=== PATIENT | female | born 1975 | race Two or more races ===

== ENCOUNTER 2019-10-29 18:08 | Emergency (ER) | payer MEDICAID, SELFPAY ==
[2019-10-29 18:46] VITALS: BP 132/71; PULSE 84; RESP 16; TEMP 36.8; O2SAT 99; BMI 26.7
[2019-10-29 18:52] VITALS: BP 132/71; PULSE 84; RESP 16; TEMP 36.8; O2SAT 99
--- NOTE | 2019-10-29 18:57 | HMH.EDUTC ---
[facility] [place] Clinical Impression: Encounter for laboratory testing for COVID-19 virus Disposition: Home, Self-Care Condition on Discharge: Good Instructions: Preventing the Spread of Coronavirus Discharge Instructions Additional Instructions: You was tested for COVID in the [facility] your results should be back Friday or Friday You may call back to the [facility] on Friday to see if your results are back if you need a paper copy of your test result you will have to get that on Friday from Medical records Return if needed Straight to ER if any life threatening symptoms Referrals: PCP,No [Primary Care Provider] - As needed Time of Disposition: 18:59 Medical Decision Making - Link Inquiry Pt receiving controlled substance: No Link was queried for this patient: No Vital Signs: 10/29/19 18:46 10/29/19 18:52 Temperature 98.2 F 98.2 F Temperature Source Oral Pulse Rate 84 Pulse Rate [Left] 84 Respiratory Rate 16 16 Blood Pressure 132/71 Blood Pressure [Right Arm] 132/71 Blood Pressure Mean [Right Arm] 91 Blood Pressure Source [Right Arm] Automatic Cuff Blood Pressure Position [Right Arm] Sitting 02 Sat by Pulse Oximetry 99 Oxygen Delivery Method Room Air [facility] [place] - General Stated complaint: Needs Covid for Surg At [facility] Time Seen by Provider: 10/29/19 18:57 Mode of Arrival: Ambulatory Source of Information: Patient Limitations: No Limitations Description of Symptoms (Recalled from Triage Doc. by RN): Need a Covid test for procedure HEENT Symptoms (Recalled from RN notes): No Resp Symptoms (Recalled from RN notes): No Skin Symptoms (Recalled from RN notes): No MS Symptoms (Recalled from RN notes): No Functional Status (Recalled from RN notes): WNL - History of Present Illness Provider Complaint: Patient states that she is having a hysterctomy next and surgeon told her she needed to have a COVID test prior to the procedure or she couldnt get her surgery so she came in to get a COVID test Denies feeling ill denies fever, denies sore throat - Worker's Comp Is this a Worker's Comp case?: No Is this an H Worker's Comp?: No Is this a Minnie Worker's Comp?: No [facility] History - Hepatitis A Screen Drug use history?: No High risk sexual behaviors?: No History of sexually transmitted infection?: No Currently employed?: No Childcare worker?: No Do you have indoor plumbing?: Yes Do you have electricity?: Yes Attestation statement:: This patient has been screened for Hepatitis A risk factors. I have reviewed the patient's past medical history: Yes Medical History: Denies:: Cancer, Diabetes Mellitus Type 1, Diabetes Mellitus Type 2, Internal Pacemaker, MRSA Other Surgeries: No: Pacemaker Amputation: No Fractures: No - Social History Smoking Status: Never smoker Alcohol Intake: never Occupational Status: employed ROS Obtained: Yes All systems reviewed & no additional complaints, Yes Systems reviewed as appropriate & no additional complaints - Constitutional Constitutional: Reports system reviewed and no additional complaints, except as docu, Denies body ache, Denies chills, Denies fever(s) - ENT Ears, Nose, Mouth, and Throat: Reports system reviewed and no additional complaints, except as docu, Denies otalgia, Denies sinus pain, Denies sinus pressure, Denies sore throat - Cardiovascular Cardiovascular: Reports system reviewed and no additional complaints, except as docu, Denies chest pain, Denies dyspnea - Respiratory Respiratory: Yes system reviewed and no additional complaints, except as docu, No chest congestion, No cough, No dyspnea - Gastrointestinal Gastrointestingal: Reports: system reviewed and no additional complaints, except as docu. Denies: abdominal pain, diarrhea, nausea, vomiting Physical Exam - General General appearance: alert, in no apparent distress - ENT ENT exam: Present: normal exam, normal oropharynx, mucous membranes moist, TM's normal bilaterally, normal
[2019-11-01 20:36] LABS: Covid-19 Nasal PCR Sendout UK Not Detected
== END 2019-10-29 19:00 | disposition home or self-care (01) ==
PROVIDERS: Emergency Provider Nurse Practitioner
DX: Z20.828 Contact with and (suspected) exposure to other viral communicable diseases (principal)
CPT/HCPCS: 99201; U0003

== ENCOUNTER 2021-07-29 17:14 | Emergency (ER) | payer OTHER, SELFPAY ==
[2021-07-29 17:33] VITALS: BP 119/62; PULSE 75; RESP 16; TEMP 36.9; O2SAT 96; BMI 28.9
[2021-07-29 17:38] LABS: Apearance,Urine Cloudy (Clear); Color,Urine Orange (Yellow); PH,Urine 8.5 (5.0-8.5)
[2021-07-29 17:39] LABS: Bilirubin,Urine Negative (Negative); Blood, Urine 2+ (Negative); Glucose,Urine (UA) Trace (Negative); Ketones,Urine TRACE (Negative); Protein,Urine 2+ (Negative); Urobilinogen,Urine 2 EU/dl (0.2)
[2021-07-29 17:40] LABS: UTC Leukocyte Esterase,Urine 1+ (Negative); UTC Nitrate,Urine Positive (Negative)
--- NOTE | 2021-07-29 17:43 | HMH.EDUTC ---
[facility] [place] Impression: UTI (urinary tract infection) Qualifiers: Urinary tract infection type: site unspecified Hematuria presence: with hematuria Qualified Code(s): N39.0 - Urinary tract infection, site not specified; R31.9 - Hematuria, unspecified Disposition: Home, Self-Care Condition on Discharge: Good Instructions: DI for Urinary Tract Infection (UTI), Urine Culture Additional Instructions: Drink plenty of fluids. Water would be best. Take tylenol or ibuprofen for pain or fever. Take the medications as directed. Follow up with your regular doctor. GO TO THE ER FOR ANY WORSENING SYMPTOMS The pyridium will make your urine turn orange, this is an expected side effect. It will stain your clothes if it comes into contact with them. We will culture the urine. That will tell what bacteria is causing your infection and which antibiotics will treat it best. Sometimes the first antibiotic we prescribe turns out to not work against different bacteria. So, make sure you follow up within 3 days if you are not getting better. Prescriptions: Ondansetron [Zofran 4mg ODT] 4 mg PO Q8HP PRN #12 tab PRN Reason: Nausea Transmission Status: Pending to [facility] # Nitrofurantoin Monohyd/M-Cryst [Macrobid 100 mg Capsule] 100 mg PO BID 5 Days #10 cap Transmission Status: Pending to [facility] # Phenazopyridine HCl [Pyridium 200mg Tablet] 200 pow PO TID #6 tab Transmission Status: Pending to [facility] # Referrals: Provider,Referral, [Primary Care Provider] - Forms: Work/School Release Time of Disposition: 17:51 Medical Decision Making - Medical Records Medical records reviewed: No: I reviewed the patient's medical records. - Link Inquiry Pt receiving controlled substance: No Vital Signs: 07/29/21 17:33 Temperature 98.4 F Temperature Source Oral Pulse Rate [Left Radial] 75 Respiratory Rate 16 Blood Pressure [Right Arm] 119/62 Blood Pressure Mean [Right Arm] 81 02 Sat by Pulse Oximetry 96 - Lab Data Lab results reviewed: Yes: I reviewed the patient's lab results. Lab Results 07/29/21 17:29: Urine Color [place], Urine Appearance Cloudy, Urine pH 8.5, Ur Specific Mcintosh 1.020, Urine Protein 2+, Urine Glucose (UA) Trace, Urine Ketones Trace, Urine Blood 2+, Urine Nitrate Positive A, Urine Bilirubin Negative, Urine Urobilinogen 2, Ur Leukocyte Esterase 1+ A [facility] [place] General Stated complaint: possible Uti Time Seen by Provider: 07/29/21 17:43 Description of Symptoms (Recalled from Triage Doc. by RN): patient comes in today with complaints of burning and pain with urination. symptoms began yesterday morning. HEENT Symptoms (Recalled from RN notes): No Resp Symptoms (Recalled from RN notes): No Skin Symptoms (Recalled from RN notes): No MS Symptoms (Recalled from RN notes): No Functional Status (Recalled from RN notes): wnl - History of Present Illness Provider Complaint: she states that since yesterday she has had dysuria, urinary frequency and lower abdomen tenderness. - Related Data Previous Rx's Medication Instructions Recorded Nitrofurantoin Monohyd/M-Cryst 100 mg PO BID 5 Days #10 cap 07/29/21 [Macrobid 100 mg Capsule] Ondansetron [Zofran 4mg ODT] 4 mg PO Q8HP PRN #12 tab 07/29/21 Phenazopyridine HCl [Pyridium 200 pow PO TID #6 tab 07/29/21 200mg Tablet] Allergies Allergy/AdvReac Type Severity Reaction Status Date / Time No Known Allergies Allergy Verified 07/29/21 17:38 - Worker's Comp Is this a Worker's Comp case?: No [facility] History - Hepatitis A Screen Attestation statement:: This patient has been screened for Hepatitis A risk factors. I have reviewed the patient's past medical history: Yes Medical History: Denies:: Cancer, Diabetes Mellitus Type 1, Diabetes Mellitus Type 2, Internal Pacemaker, MRSA Other Surgeries: No: Pacemaker Amputation: No Fractures:
[2021-07-29 18:01] VITALS: BP 119/62; PULSE 75; RESP 16; TEMP 36.9
== END 2021-07-29 18:02 | disposition home or self-care (01) ==
PROVIDERS: Emergency Provider Nurse Practitioner Family
DX: N39.0 Urinary tract infection, site not specified (principal); B96.20 Unspecified Escherichia coli [E. coli] as the cause of diseases classified elsewhere; R31.9 Hematuria, unspecified
CPT/HCPCS: 81003; 87086; 87088; 87186; 99212; G0463

== ENCOUNTER 2021-10-02 05:18 | Emergency (ER) | payer OTHER, SELFPAY ==
[2021-10-02] VITALS (7 sets, daily range): BP systolic 101–123; BP diastolic 63–80; PULSE 66–78; RESP 16–18; TEMP 36.6–36.9; O2SAT 97–99; BMI 28.0
[2021-10-02 06:02] LABS: Microscopic, Urine URINE MICROSCOPIC (MICROSCOPIC)
[2021-10-02 06:06] LABS: Appearance,Urine SL CLOUDY (Clear); Bilirubin,Urine Negative (Negative); Blood, Urine 3+ (Negative); Glucose,Urine (UA) TRACE (Negative); Ketones,Urine Negative (Negative); Leukocyte Esterase,Urine 3+ (Negative); Nitrate,Urine POSITIVE (Negative); Protein,Urine 1+ (Negative)
[2021-10-02 06:13] LABS: Basophils # 0.1 K/mm3 (0-0.2); Basophils % 0.9 % (0.1-2.0); Eosinophils # 0.2 K/mm3 (0.0-0.4); Eosinophils % 2.7 % (0.1-12.0); Hematocrit 44.9 % (37.0-47.0); Hemoglobin 14.4 g/dL (12.2-16.2); Lymphocytes # 2.1 K/mm3 (0.7-4.5); Lymphocytes % 22.9 % (10-50); Mean Corpuscular HGB Conc 32.2 g/dL (31.8-35.4); Mean Corpuscular Hemoglobin 31.3 pg (27.0-31.2); Mean Corpuscular Volume 97.3 fl (81-99); Mean Platelet Volume 9.5 fl (7.4-10.4); Monocytes # 0.4 K/mm3 (0.1-1.0); Monocytes % 4.9 % (1.7-9.3); Neutrophils # 6.2 K/mm3 (1.8-7.8); Neutrophils % 68.6 % (37.0-80.0); Platelet Count 247 K/mm3 (142-424); Red Blood Count 4.61 M/mm3 (4.20-5.40); Red Cell Distribution Width 13.7 % (11.5-17.5)
[2021-10-02 06:19] LABS: Color,Urine ORANGE (Yellow)
[2021-10-02 06:24] LABS: Bacteria,Urine Trace /lpf; Squamous Epithelial Cell,Urine Occasional #/hpf (0-5); WBC,Urine 50-100 #/hpf (0-3)
[2021-10-02 06:25] LABS: Chloride 110 mmol/L (98-107); Potassium 3.7 mmoL/L (3.5-5.1); Sodium 140 mmol/L (136-145)
[2021-10-02 06:27] LABS: Alanine Aminotransferase 27 U/L (12-78); Aspartate Amino Transferase 27 U/L (14-36); Blood Urea Nitrogen 8 mg/dl (7-17); Creatinine Clearance Estimated 133 mL/min (50-200); Estimated Glomerular Filt Rate 108 ml/min (>60); GFR (African American) 130 ML/MIN (>60)
[2021-10-02 06:28] LABS: Albumin Level 3.9 g/dl (3.5-5.0); Albumin/Globulin Ratio 1.3 (1.1-1.8); Alkaline Phosphatase 99 U/L (38-126); Anion Gap 8.7 mEq/L (5-15); Bilirubin,Total 0.7 mg/dl (0.2-1.3); Calcium 8.3 mg/dl (8.4-10.2); Carbon Dioxide 25 mmol/L (22.0-30.0); Globulin 3.1 g/dL (1.3-3.2); Glucose 94 mg/dl (74-100)
--- NOTE | 2021-10-02 06:35 | PC.NURSE ---
Rounded on Pt. Pt given warm blanket for comfort. No other needs or complaints at this time.
--- NOTE | 2021-10-02 07:23 | HMH.EDUROGF ---
ED Disposition Clinical Impression: UTI (urinary tract infection) Qualifiers: Urinary tract infection type: site unspecified Hematuria presence: without hematuria Qualified Code(s): N39.0 - Urinary tract infection, site not specified Disposition: Home, Self-Care Condition on Discharge: Good Instructions: DI for Urinary Tract Infection (UTI) Additional Instructions: fluids and use meds and see pcp and urology for follow up Prescriptions: levoFLOXacin [Levaquin 500mg tab] 500 mg PO DAILY #7 tab Transmission Status: Pending to [facility] #[id number] Phenazopyridine HCl [Pyridium 200mg Tablet] 200 pow PO TID #6 tab Transmission Status: Pending to [facility] #[id number] Referrals: Provider,Referral, [Primary Care Provider] - - Critical Care Critical Care Time: No Attestation: On 10/02/21, the high probability of a clinically significant, sudden or life threatening deterioration of the following system(s) required my full and direct attention, intervention and personal management. The time I documented below is in addition to time spent performing reported procedures but includes the following listed in this critical care notation. Medical Decision Making - Medical Records Medical records reviewed: Yes: I reviewed the patient's medical records. - Link Inquiry Pt receiving controlled substance: No Vital Signs: 10/02/21 05:19 10/02/21 05:46 10/02/21 06:34 Temperature 98.3 F 98 F Temperature Source Oral Oral Pulse Rate 75 Pulse Rate [Apical] 78 Respiratory Rate 16 18 Blood Pressure 111/68 Blood Pressure [Right Arm] 123/80 120/78 Blood Pressure Mean [Right Arm] 94 92 Blood Pressure Source [Right Arm] Automatic Cuff Blood Pressure Position [Right Arm] Sitting 02 Sat by Pulse Oximetry 98 99 97 Oxygen Delivery Method Room Air Room Air Room Air - Lab Data Lab results reviewed: Yes: I reviewed the patient's lab results. Lab Results 10/02/21 05:24: Urine Color [place], Urine Appearance Sl cloudy, Urine pH 6.0, Ur Specific [place] 1.020, Urine Protein 1+, Urine Glucose (UA) Trace, Urine Ketones Negative, Urine Blood 3+, Urine Nitrate Positive, Urine Bilirubin Negative, Urine Urobilinogen 2.0, Ur Leukocyte Esterase 3+ A, Urine RBC 5-10, Urine WBC 50-100, Ur Squamous Epith Cells Occasional, Urine Bacteria Trace 10/02/21 05:33: WBC 9.0, RBC 4.61, Hgb 14.4, Hct 44.9, MCV 97.3, MCH 31.3 H, MCHC 32.2, RDW 13.7, Plt Count 247, MPV 9.5, Neut % (Auto) 68.6, Lymph % (Auto) 22.9, Woodruff % (Auto) 4.9, Eos % (Auto) 2.7, Baso % (Auto) 0.9, Neut # (Auto) 6.2, Lymph # (Auto) 2.1, Woodruff # (Auto) 0.4, Eos # (Auto) 0.2, Baso # (Auto) 0.1 10/02/21 05:33: Sodium 140, Potassium 3.7, Chloride 110 H, Carbon Dioxide 25, Anion Gap 8.7, BUN 8, Creatinine 0.60, Estimated Creat Clear 133, Estimated GFR 108, Est GFR ( Amer) 130, Glucose 94, Calcium 8.3 L, Total Bilirubin 0.7, AST 27, ALT 27, Alkaline Phosphatase 99, Total Protein 7.0, Albumin 3.9, Globulin 3.1, Albumin/Globulin Ratio 1.3 Result diagrams: 10/02/21 05:33 10/02/21 05:33 Orders (Tests/Meds): ED MEDICATIONS Generic Name Dose Route Start Last Admin Trade Name Freq PRN Reason Stop Dose Admin Ceftriaxone Sodium 1 gm/ 50 mls @ 100 mls/hr 10/02/21 07:15 10/02/21 07:16 Sodium Chloride IV 10/16/21 07:14 100 mls/hr Q24H ANIA Administration ORDERS Category Date Time Status Urine Culture Stat Micro 10/02/21 05:24 Received Medical Decision Narrative: has uti - Female Urogenital HPI - General Chief complaint: Skin/Abscess/Foreign Body Stated complaint: pain and frequent urination Time Seen by Provider: 10/02/21 07:23 Mode of Arrival: Ambulatory Source of Information: Patient, Relative, Medical Record Limitations: No Limitations Description of Symptoms (Recalled from ER Triage Doc. by RN): Painful urination and urinary frequency. - History of Present Illness HPI Narrative: painful urination and freq st
--- NOTE | 2021-10-02 07:35 | PC.NURSE ---
Pt resting in bed. IV antibiotics running at this time.
--- NOTE | 2021-10-02 08:33 | PC.NURSE ---
GAVE WORK/SCHOOL EXCUSE
== END 2021-10-02 08:36 | disposition home or self-care (01) ==
PROVIDERS: Emergency Provider Emergency Medicine
DX: N39.0 Urinary tract infection, site not specified (principal)
CPT/HCPCS: 80053; 81001; 85025; 87086; 87088; 87186; 96365; 99284; J0696

== ENCOUNTER → 2022-09-25 14:09 | Outpatient (CLI) | payer OTHER, SELFPAY ==
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
== END ==
PROVIDERS: Visit Provider Nurse Practitioner Family
DX: R51.9 Headache, unspecified (principal); R42 Dizziness and giddiness
CPT/HCPCS: 70551

== ENCOUNTER → 2022-11-19 16:17 | Outpatient (CLI) | payer OTHER, SELFPAY ==
--- NOTE | 2022-11-19 16:22 | MM_ITS ---
PROCEDURE INFORMATION: Exam: MG Bilateral Diagnostic Mammography Exam date and time: 11/19/2022 4:12 PM Age: 47 years old Clinical indication: Due for annual screening. Patient reports right breast focal pain for 2 weeks. A skin marker was positioned in the locations symptoms TECHNIQUE: Imaging protocol: Diagnostic mammography of the bilateral breasts including computer-aided detection (CAD) when performed. Bilateral exam. COMPARISON: 1. MG MAMMOGRAPHY BREAST DIAGNOSTIC TOMOSYNTHESIS BILATERAL 08/09/2021 8:39 AM 2. MG RENETTA BILATERAL SCREENING 09/21/2018 3:37 PM 3. US BREAST LIMITED RIGHT 08/09/2021 9:30 AM FINDINGS: MAMMOGRAPHY: The breast is heterogeneously dense, which may obscure small masses. In the region of focal pain, lower slightly outer right middle 1/3, only normal glandular structures are apparent. No new mass, architectural distortion, or suspicious calcifications have developed to suggest malignancy. No axillary adenopathy. IMPRESSION: No suspicious mammographic findings. Due to the patient's clinical presentation, targeted ultrasound is recommended in the region of focal pain, lower slightly outer right middle 1/3, to complete the diagnostic workup ASSESSMENT: BI-RADS category 0: Incomplete-need additional imaging evaluation
== END ==
PROVIDERS: PCP Nurse Practitioner; Visit Provider Nurse Practitioner
DX: Z12.31 Encounter for screening mammogram for malignant neoplasm of breast (principal)
CPT/HCPCS: 77063; 77067

== ENCOUNTER → 2022-12-23 15:43 | Outpatient (CLI) | payer OTHER, SELFPAY ==
--- NOTE | 2022-12-23 15:49 | US_ITS ---
PROCEDURE INFORMATION: Exam: US Right Breast, Complete Exam date and time: 12/23/2022 3:49 PM Age: 47 years old Clinical indication: Right breast pain TECHNIQUE: Imaging protocol: Complete ultrasound of all four quadrants of the right breast and the retroareolar regions, including ultrasound of the axilla when performed. COMPARISON: US BREAST LIMITED RIGHT 08/09/2021 9:30 AM FINDINGS: Breast: Sonographic images of the right breast including the retroareolar region, all 4 quadrants and the axilla do not demonstrate any solid or cystic masses. No architectural distortion or acoustical shadowing. No skin thickening or axillary adenopathy. IMPRESSION: No sonographic evidence of malignancy. Annual mammographic screening is recommended unless otherwise clinically indicated. ASSESSMENT: BI-RADS Category 1: Negative
== END ==
PROVIDERS: PCP Obstetrics & Gynecology Gynecology; Visit Provider Obstetrics & Gynecology Gynecology
DX: R92.8 Other abnormal and inconclusive findings on diagnostic imaging of breast (principal)
CPT/HCPCS: 76641

== ENCOUNTER 2023-02-07 16:56 | Emergency (ER) | payer OTHER, SELFPAY ==
[2023-02-07 18:10] VITALS: BP 121/71; BP 121/72; PULSE 68; PULSE 74; RESP 21; TEMP 36.6; O2SAT 98; BMI 27.3
--- NOTE | 2023-02-07 18:14 | EXP.UTC ---
Discharge Plan Disposition Patient Disposition: Home, Self-Care Condition: Good Prescriptions Prescriptions: New methylprednisolone 4 mg Tablets,Dose Pack 4 mg PO DIRECTED 6 Days Qty: 21 0RF Rx Instructions: Take 1 pack as directed for 6 days ondansetron 4 mg Tablet,Disintegrating 4 mg PO Q8H PRN (Reason: Nausea) Qty: 12 0RF cefdinir 300 mg capsule 300 mg PO BID Qty: 20 0RF No Action Gemtesa 75 mg tablet 75 mg PO DAILY Referrals Follow up/Referrals: Provider,Referral, MD [Primary Care Provider] - See instructions Activity Restrictions/Add. Instructions Additional Instructions/Restrictions: Drink plenty of fluids. Take the zofran (ondesetron) for nausea/vomiting. Take the medications as directed. Follow up with your regular doctor. GO TO THE ER FOR ANY WORSENING SYMPTOMS Clinical Impressions Clinical Impression: Benign paroxysmal positional vertigo Instructions Patient Instructions: Benign Paroxysmal Positional Vertigo, Ondansetron, Cefdinir Discharge ED Provider: Enrrique Gerard [facility] General Stated complaint: dizzy Time Seen by Provider: 02/07/23 18:14 History of Present Illness Provider Complaint: She states that she has been having periods of dizziness for the past few days. She thinks that she may have an ear infection. Related Data Home Medications Medication Instructions Recorded Confirmed vibegron 75 mg tablet (Gemtesa) 75 mg PO DAILY 02/07/23 02/07/23 Previous Rx's Medication Instructions Recorded cefdinir 300 mg capsule 300 mg PO BID #20 caps 02/07/23 methylprednisolone 4 mg tablets in 4 mg PO DIRECTED 6 days #21 tabs 02/07/23 a dose pack ondansetron 4 mg disintegrating 4 mg PO Q8H PRN Nausea #12 tabs 02/07/23 tablet Allergies Allergy/AdvReac Type Severity Reaction Status Date / Time No Known Allergies Allergy Verified 07/29/21 17:38 [facility] Disclaimer: The information contained in this section may have been updated after the patient was seen, as this information can be updated by other users. Surgical History (Updated 02/07/23 @ 18:28 by Sarah Ventura RN) History of section History of hysterectomy Social History Smoking Status: Never smoker second hand exposure: No alcohol intake: never current occupational status: employed Travel in the last 8 weeks: None current occupational exposures/hazards: No caffeine: Yes ROS Obtained: Yes All systems reviewed & no additional complaints except as documented Constitutional Constitutional: Denies chills, Reports fever(s) and Reports poor appetite Eyes Eyes: Denies eye discharge ENT Ears, Nose, Mouth, and Throat: Denies ear discharge, Reports otalgia, Denies hearing loss, Denies sinus pain and Reports sore throat Cardiovascular Cardiovascular: Denies chest pain and Denies dyspnea Respiratory Respiratory: Denies chest congestion, Reports cough and Denies dyspnea Gastrointestinal Gastrointestingal: Denies abdominal pain, diarrhea, nausea or vomiting Musculoskeletal Musculoskeletal: Denies arthralgias Integumentary/Breasts Skin/Breast: Denies rash Physical Exam General General appearance: alert and in no apparent distress Head Head exam: atraumatic, normocephalic and normal inspection Eye Eye exam: Present normal appearance; Absent PERRL or EOMI ENT ENT exam: Present mucous membranes moist and normal external ear exam Expanded ENT Exam TM/Canal exam: Bilateral TM: erythema, bulging and effusion Nose exam: Absent sinus tenderness Nasal speculum exam: Bilateral: normal Mouth exam: Present normal external inspection and other; Absent drooling Teeth exam: Present normal inspection Throat exam: Present tonsillar erythema and tonsillomegaly Neck Neck exam: Present normal inspection, full ROM and trachea midline; Absent tenderness, meningismus or lymphadenopathy Chest Chest inspection: Present normal inspection and symmetric chest wall rise; Absent tenderness Respiratory Respiratory exam: Present normal lung sounds bilaterally; Absent respiratory distress, wheezes or stridor Cardiovascular Cardiovascular exam: Present regular rate, normal rhythm and normal heart sounds; Absent tachycardia or irregular rhythm Abdominal Exam Abdominal exam: Present soft and normal bowel sounds; Absent distention, tenderness, guarding, rebound or rigidity Extremities Exam Extremities exam: Present normal inspection and normal capillary refill; Absent tenderness, joint swelling or calf tenderness Back Exam Back exam: Present normal inspection and full ROM; Absent tenderness, CVA tenderness (R) or CVA tenderness (L) Neurological Exam Neurological exam: Present alert, oriented X3, CN II-XII intact, normal gait and reflexes normal; Absent motor sensory deficit Psychiatric Psychiatric exam: Present normal affect and normal mood Skin Skin exam: Present warm, dry, intact and normal color Lymphatic Lymphatic Findings: no adenopathy Medical Decision Making Medical Records Medical records reviewed: No I reviewed the patient's medical records. Link Inquiry Pt receiving controlled substance: No Lab Data Lab results reviewed: Yes I reviewed the patient's lab results.
[2023-02-07 18:45] VITALS: BP 121/72; PULSE 68; RESP 21; TEMP 36.6; O2SAT 98
== END 2023-02-07 18:49 | disposition home or self-care (01) ==
PROVIDERS: Emergency Provider Nurse Practitioner Family
DX: H81.10 Benign paroxysmal vertigo, unspecified ear (principal); H92.03 Otalgia, bilateral
CPT/HCPCS: 99212; 99214; G0463

== ENCOUNTER 2023-03-28 16:25 | Emergency (ER) | payer OTHER, SELFPAY ==
[2023-03-28 17:20] VITALS: BP 102/61; PULSE 81; RESP 18; TEMP 37; O2SAT 98; BMI 26.6
--- NOTE | 2023-03-28 17:40 | EXP.UTC ---
Discharge Plan Disposition Patient Disposition: Home, Self-Care Condition: Good Prescriptions Prescriptions: New amoxicillin-pot clavulanate 875-125 mg Tablet 1 tab PO Q12H Qty: 20 0RF pseudoephedrine HCl [Sudafed 12 Hour] 120 mg tablet extended release 120 mg PO Q12H PRN (Reason: nasal congestion) Qty: 20 0RF No Action Gemtesa 75 mg tablet 75 mg PO DAILY Referrals Follow up/Referrals: Provider,Referral, MD [Primary Care Provider] - See instructions Activity Restrictions/Add. Instructions Additional Instructions/Restrictions: *Monitor Temp, Over the counter Motrin or Tylenol as directed/as needed Tylenol every 4 hours and Motrin every 6 hours (as long as your family doctor has told you that you can take it) for fever or pain. and straight to ER if unable to lower temp less than 101.0 after medication given *Warm salt water gargles may help to soothe the throat *Throat Lozenges? *Warm fluids like tea with honey may help to soothe the throat? *Sleep elevated *Humidifier/Vaporizer Follow up IMMEDIATELY for new or worsening symptoms or no Noticeable improvement over the next 48-72 hours. 911 for difficulty breathing or swallowing Clinical Impressions Clinical Impression: Left otitis media Qualifiers: Otitis media type: unspecified Qualified Code(s): H66.92 - Otitis media, unspecified, left ear Instructions Patient Instructions: Middle Ear Infection Discharge ED Provider: Cristin Ta [facility] General Stated complaint: left ear pain st runny nose Mode of Arrival: Ambulatory Source of Information: Patient Limitations: No Limitations Time Seen by Provider: 03/28/23 17:40 Description of Symptoms (Recalled from Triage Doc. by RN): PATIENT C/O LEFT EAR PAIN, RUNNY NOSE, ITCHY THROAT AND FEELING WARM/FEVERISH X 3 WEEKS HEENT Symptoms (Recalled from RN notes): Yes Resp Symptoms (Recalled from RN notes): No Skin Symptoms (Recalled from RN notes): No MS Symptoms (Recalled from RN notes): No Functional Status (Recalled from RN notes): WNL History of Present Illness Provider Complaint: Patient primarily Azeri speaking but can understand and speak Sami Patient states that she has been having pain in her left ear that sometimes goes down into her neck, drainage and feeling feverish at times on and off for 3 wks Related Data Home Medications Medication Instructions Recorded Confirmed vibegron 75 mg tablet (Gemtesa) 75 mg PO DAILY 02/07/23 03/28/23 Previous Rx's Medication Instructions Recorded amoxicillin 875 mg-potassium 1 tab PO Q12H #20 tabs 03/28/23 clavulanate 125 mg tablet pseudoephedrine HCl 120 mg 120 mg PO Q12H PRN nasal 03/28/23 tablet,extended release (Sudafed congestion #20 tabs 12 Hour) Allergies Allergy/AdvReac Type Severity Reaction Status Date / Time No Known Allergies Allergy Verified 02/26/23 10:28 Worker's Comp Is this a Worker's Comp case?: No [facility] Disclaimer: The information contained in this section may have been updated after the patient was seen, as this information can be updated by other users. Medical History (Updated 03/28/23 @ 17:44 by Cristin Ta APRN) Benign paroxysmal positional vertigo Encounter for laboratory testing for COVID-19 virus Scleral injection UTI (urinary tract infection) Surgical History History of section History of hysterectomy Family History Other No significant family history Social History Smoking Status: Never smoker second hand exposure: No alcohol intake: never current occupational status: employed Travel in the last 8 weeks: None current occupational exposures/hazards: No caffeine: Yes ROS Obtained: Yes All systems reviewed & no additional complaints except as documented and Yes Systems reviewed as appropriate & no additional complaints except as documented Constitutional Constitutional: Reports system reviewed and no additional complaints, except as documented and Reports as per HPI ENT Ears, Nose, Mouth, and Throat: Reports system reviewed and no additional complaints, except as documented, Reports as per HPI, Reports otalgia, Reports nasal congestion, Reports nasal discharge and Reports sore throat Cardiovascular Cardiovascular: Reports system reviewed and no additional complaints, except as documented and Reports as per HPI Respiratory Respiratory: Reports system reviewed and no additional complaints, except as documented and Reports as per HPI Gastrointestinal Gastrointestingal: Reports system reviewed and no additional complaints, except as documented and as per HPI Physical Exam General General appearance: alert and in no apparent distress ENT ENT exam: Present mucous membranes moist Expanded ENT Exam TM/Canal exam: Left TM: erythema and bulging Nose exam: Present sinus tenderness Throat exam: Present tonsillar erythema Respiratory Respiratory exam: Present normal lung sounds bilaterally; Absent respiratory distress or wheezes Cardiovascular Cardiovascular exam: Present regular rate, normal rhythm and normal heart sounds Abdominal Exam Abdominal exam: Present soft and normal bowel sounds; Absent distention or tenderness Neurological Exam Neurological exam: Present alert, oriented X3 and normal gait Medical Decision Making Link Inquiry Pt receiving controlled substance: No Link was queried for this patient: No Vital Signs: 03/28/23 17:20 Temperature 98.6 F Temperature Source Oral Pulse Rate [Left Brachial] 81 Respiratory Rate 18 Blood Pressure [Left Arm] 102/61 L Blood Pressure Mean [Left Arm] 74 Blood Pressure Source [Left Arm] Automatic Cuff Blood Pressure Position [Left Arm] Sitting 02 Sat by Pulse Oximetry 98 Oxygen Delivery Method Room Air
[2023-03-28 17:45] VITALS: BP 102/61; PULSE 81; RESP 18; TEMP 37; O2SAT 98
== END 2023-03-28 17:48 | disposition home or self-care (01) ==
PROVIDERS: Emergency Provider Nurse Practitioner
DX: H66.92 Otitis media, unspecified, left ear (principal); R50.9 Fever, unspecified; R09.81 Nasal congestion
CPT/HCPCS: 99212; 99214; G0463

== ENCOUNTER 2023-11-24 04:32 | Emergency (ER) | payer OTHER, SELFPAY ==
[2023-11-24 04:48] VITALS: BP 115/66; PULSE 66; RESP 18; TEMP 36.7; O2SAT 97; BMI 28.5
--- NOTE | 2023-11-24 04:48 | HMH.EDGENADL ---
Discharge Plan Disposition Patient Disposition: Home, Self-Care Condition: Good Prescriptions Prescriptions: New ondansetron 4 mg tablet,disintegrating 4 mg PO Q6H PRN (Reason: nausea and vomiting) Qty: 7 0RF No Action amoxicillin 875 mg tablet 875 mg PO BID Qty: 20 0RF [id number] [Bromfed DM] 2-30-10 mg/5 mL syrup 5 ml PO Q4-6H PRN (Reason: cold symptoms) Qty: 118 0RF Gemtesa 75 mg tablet 75 mg PO DAILY Referrals Follow up/Referrals: Susu Rocha PA [Primary Care Provider] - See instructions (patient evaluated in ER, seems to have migraines (intermittent unilateral headache with vision changes and vomiting). Needs follow up and possible PRN rx) Activity Restrictions/Add. Instructions Additional Instructions/Restrictions: You were evaluated in the ER and are appropriate for discharge at this time. If you have symptoms like this again, take Tylenol, ibuprofen, and the prescribed ondansetron for nausea. Make an appointment with your primary care doctor for reevaluation and to discuss medication for migraine. Return to the ER with new, worsening, or otherwise concerning symptoms. Clinical Impressions Clinical Impression: Headache, Nausea & vomiting Stand Alone Forms Stand Alone Forms: Work/School Release Print Language Print Language: Bengali Discharge ED Provider: Jimbo Bowens General Adult HPI General Chief complaint: Nausea/Vomiting/Diarrhea Stated complaint: headache, nausea, vomiting Time Seen by Provider: 11/24/23 04:38 History of Present Illness HPI narrative: 48-year-old female with no known chronic medical conditions, no daily medications, no known drug allergies presents to the ER with complaints of 1 episode of emesis approximately 24 hours ago with persistent nausea, left-sided headache that feels like it is behind her left eye and in her left ear is a pulsing/throbbing sensation. She states she feels diffusely weak. She has no chest pain, shortness of breath, or fevers. She denies bloody or bilious emesis, she has no diarrhea or constipation, no abdominal pain. Patient states she gets episodes like this occasionally and has never been diagnosed with a specific problem. Patient reports she took a menstrual pill a few hours ago without improvement of symptoms. Menstrual pill contained acetaminophen. Related Data Home Medications ?Medication ?Instructions ?Recorded ?Confirmed vibegron 75 mg tablet (Gemtesa) 75 mg PO DAILY 02/07/23 08/05/23 Previous Rx's ?Medication ?Instructions ?Recorded amoxicillin 875 mg tablet 875 mg PO BID #20 tabs 08/01/23 [id number]-nvbwrbtaydzwhfq-WV 5 ml PO Q4-6H PRN cold symptoms 08/01/23 2 mg-30 mg-10 mg/5 mL oral syrup #118 mL (Bromfed DM) ondansetron 4 mg disintegrating 4 mg PO Q6H PRN nausea and 11/24/23 tablet vomiting #7 tabs Allergies Allergy/AdvReac Type Severity Reaction Status Date / Time No Known Allergies Allergy Verified 08/05/23 15:44 [facility] Disclaimer: The information contained in this section may have been updated after the patient was seen, as this information can be updated by other users. Medical History Scleral injection left medial Benign paroxysmal positional vertigo UTI (urinary tract infection) Encounter for laboratory testing for COVID-19 virus Surgical History History of hysterectomy History of section Family History Other No significant family history Social History Smoking Status: Never smoker second hand exposure: No alcohol intake: never current occupational status: employed Travel in the last 8 weeks: None current occupational exposures/hazards: No caffeine: Yes Other Medical History Have you received the Flu Vaccine for this season: No Have you received the Pneumonia Vaccine: No ROS Obtained: Yes All systems reviewed & no additional complaints except as documented Positive ROS per HPI Physical Exam General General appearance: alert and in no apparent distress Head Head exam: atraumatic and normocephalic Eye Eye exam: Present PERRL and EOMI ENT ENT exam: Present mucous membranes moist, TM's normal bilaterally and other (No pain with manipulation of the auricles, no erythema or discharge in the canals) Neck Neck exam: Present normal inspection and full ROM Chest Chest inspection: Present symmetric chest wall rise Respiratory Respiratory exam: Present normal lung sounds bilaterally; Absent respiratory distress, wheezes or stridor Cardiovascular Cardiovascular exam: Present regular rate and normal rhythm Abdominal Exam Abdominal exam: Present soft; Absent distention, tenderness, guarding or rebound Extremities Exam Extremities exam: Present full ROM; Absent edema Neurological Exam Neurological exam: Present alert, oriented X3, CN II-XII intact and normal gait; Absent motor sensory deficit (5 out of 5 strength in all extremities, full sensation in all extremities, no cerebellar symptoms) Psychiatric Psychiatric exam: Present normal affect and normal mood Skin Skin exam: Present warm and dry Medical Decision Making Medical Records Screening: Per USPSTF and CDC recommendations, given the prevalence of disease in our region, it is our hospital?s policy to screen for HIV and viral Hepatitis for all patients aged 18 and over and those with ongoing risk factors. Link Inquiry Pt receiving controlled substance: No Vital Signs: 11/24/23 04:48 Temperature 98.1 F Temperature Source Oral Pulse Rate [Left Radial] 66 Respiratory Rate 18 Blood Pressure [Right Arm] 115/66 Blood Pressure Mean [Right Arm] 82 Blood Pressure Source [Right Arm] Automatic Cuff Blood Pressure Position [Right Arm] Sitting 02 Sat by Pulse Oximetry 97 Oxygen Delivery Method Room Air Lab Data Lab Results 11/24/23 04:37: Urine Color Yellow, Urine Appearance Clear, Urine pH 6.0, Ur Specific [place] <= 1.005, Urine Protein Negative, Urine Glucose (UA) Negative, Urine Ketones Negative, Urine Blood Negative, Urine Nitrate Negative, Urine Bilirubin Negative, Urine Urobilinogen 0.2, Ur Leukocyte Esterase Negative, Urine RBC None, Urine WBC None, Ur Squamous Epith Cells 5-10, Urine Bacteria None, SARS-CoV-2 (PCR) Not detected, Influenza A Untype (PCR) Not detected, Influenza Type B (PCR) Not detected 11/24/23 04:44: WBC 9.8, RBC 4.89, Hgb 15.0, Hct 43.9, MCV 89.7, MCH 30.8, MCHC 34.3, RDW 13.9, Plt Count 209, MPV 9.2, Neut % (Auto) 55.0, Lymph % (Auto) 36.2, [place] % (Auto) 5.2, Eos % (Auto) 2.3, Baso % (Auto) 1.4, Neut # (Auto) 5.4, Lymph # (Auto) 3.5, [place] # (Auto) 0.5, Eos # (Auto) 0.2, Baso # (Auto) 0.1, Sodium 136, Potassium 3.8, Chloride 111 H, Carbon Dioxide 25, Anion Gap 3.8 L, BUN 9, Creatinine 0.60, Estimated Creat Clear 128, Estimated GFR 107, Est GFR ( Amer) 129, Glucose 93, Calcium 9.1, Magnesium 1.8, Total Bilirubin 0.7, AST 26, ALT 25, Alkaline Phosphatase 77, Troponin I < 0.01, Total Protein 7.0, Albumin 3.9, Globulin 3.1, Albumin/Globulin Ratio 1.3, Lipase 162, Serum HCG, Qual Negative 11/24/23 04:44 11/24/23 04:44 Orders (Tests/Meds): ED MEDICATIONS Generic Name Dose Route Start Last Admin Trade Name Freq PRN Reason Stop Dose Admin Sodium Chloride 1,000 mls @ 999 mls/hr 11/24/23 04:52 11/24/23 05:02 Sod Chlor 0.9% 1000ml Bag IV 11/24/23 05:52 999 mls/hr .Q1H1M ONE Administration Discontinued Medications Generic Name Dose Route Start Last Admin Trade Name Freq PRN Reason Stop Dose Admin Acetaminophen 500 mg 11/24/23 04:44 11/24/23 05:02 Acetaminophen 500mg Tab PO 11/24/23 04:45 500 mg ONCE ONE Administration Diphenhydramine HCl 25 mg 11/24/23 04:45 11/24/23 05:02 Diphenhydramine 50mg/Ml Vial IV 11/24/23 04:46 25 mg ONCE ONE Administration Ketorolac Tromethamine 30 mg 11/24/23 05:23 11/24/23 05:24 Ketorolac 30mg/Ml Vial IV 11/24/23 05:24 30 mg ONCE ONE Administration Metoclopramide HCl 10 mg 11/24/23 04:47 11/24/23 05:02 Metoclopramide 10mg Tablet PO 11/24/23 04:48 10 mg ONCE ONE Administration ORDERS Category Date Time Status CBC w/Auto Diff [Complete Blood Count Auto Diff] Stat Lab 11/24/23 04:44 Completed CMP [Comprehensive Metabolic Panel] Stat Lab 11/24/23 04:44 Completed HCG Qualitative, Serum Stat Lab 11/24/23 04:44 Completed HIV (1&2) Antibody Rapid Stat Lab 11/24/23 04:44 Received Hep C Ab with Reflex to RNA Stat Lab 11/24/23 04:44 Received Lipase Stat Lab 11/24/23 04:44 Completed Magnesium Stat Lab 11/24/23 04:44 Completed Rapid PCR Covid and Flu A/B Stat Lab 11/24/23 04:37 Completed Trop I [Troponin I] Stat Lab 11/24/23 04:44 Completed Troponin I Q3H Lab 11/24/23 08:00 Ordered Troponin I Q3H Lab 11/24/23 11:00 Ordered Urinalysis and Microscopic Stat Lab 11/24/23 04:37 Completed Medical Decision Narrative: In summary, this 48-year-old female presents to the emergency department today with nausea, recent vomiting, left-sided head discomfort that she describes as a throbbing sensation. On initial evaluation patient is hemodynamically stable, afebrile, no neurologic deficits, overall well-appearing, abdominal exam benign, cardiopulmonary exam benign. Differential diagnosis includes but is not limited to migraine, viral syndrome, electrolyte abnormality, I considered possibility of atypical presentation of ACS, pancreatitis, UTI, , electrolyte abnormality, dehydration, among others. Based on these concerns, I ordered serum labs, urinalysis, viral swab. I do not believe imaging is indicated at this time given patient has benign abdominal exam ECG personally interpreted demonstrates normal sinus rhythm, normal axis, normal TN and QTc, normal ECG, no STEMI. Patient received IV fluids, Tylenol, Reglan, Benadryl initially for treatment. Labs personally reviewed demonstrate normal CBC, CMP nonactionable, initial troponin undetectably low at less than 0.01, I do not believe serial troponins are necessary at this time since patient has had greater than 1 day of duration of symptoms and if her symptoms were cardiac in etiology her troponin should have elevated already. test negative, UA negative for findings of infection, COVID, flu negative. Lipase reassuring against pancreatitis. With negative test patient also received Toradol. On reassessment, patient is resting comfortably. She states her symptoms have completely resolved. With her resolution of symptoms with the medications administered and her overall reassuring lab workup, I believe most likely etiology of her symptoms was migraine. I prescribed Zofran for outpatient management in case she has recurrence of symptoms and instructed her on continued outpatient monitoring and management as well as follow-up instructions and strict return precautions for the ER. She indicated understanding and the patient was discharged in stable condition. Patient had requested son at bedside be used as her smocking machine operator and he was used throughout the encounter. Critical Care Critical Care Time Critical Care Time: No
--- NOTE | 2023-11-24 04:49 | PC.NURSE ---
COVID swab collected and sent to lab
--- NOTE | 2023-11-24 04:53 | ECG_ITS ---
APPROVED REPORT Exam: Resting ECG HR:62 bpm ECG Measurements Heart Rate 62 AXES TX 161 P 27 QRSd 104 QRS 71 QT 414 T 45 QTc 419 Conclusion SINUS RHYTHM NORMAL ECG Electronically signed by : JOAQUIN OLMSTEAD, 11/24/2023 06:11:29
[2023-11-24 04:55] LABS: Coronavirus 19, PCR Not Detected (NotDetected); Influenza A, PCR Not Detected (NotDetected); Influenza B, PCR Not Detected (NotDetected); Microscopic, Urine URINE MICROSCOPIC (MICROSCOPIC)
[2023-11-24 04:56] LABS: Basophils # 0.1 K/mm3 (0-0.2); Basophils % 1.4 % (0.1-2.0); Eosinophils # 0.2 K/mm3 (0.0-0.4); Eosinophils % 2.3 % (0.1-12.0); Hematocrit 43.9 % (37.0-47.0); Lymphocytes # 3.5 K/mm3 (0.7-4.5); Lymphocytes % 36.2 % (10-50); Mean Corpuscular HGB Conc 34.3 g/dL (31.8-35.4); Mean Corpuscular Hemoglobin 30.8 pg (27.0-31.2); Mean Corpuscular Volume 89.7 fl (81-99); Mean Platelet Volume 9.2 fl (7.4-10.4); Monocytes # 0.5 K/mm3 (0.1-1.0); Monocytes % 5.2 % (1.7-9.3); Neutrophils # 5.4 K/mm3 (1.8-7.8); Platelet Count 209 K/mm3 (142-424); Red Blood Count 4.89 M/mm3 (4.20-5.40); Red Cell Distribution Width 13.9 % (11.5-17.5); White Blood Count 9.8 K/mm3 (4.8-10.8)
[2023-11-24 04:59] LABS: Appearance,Urine CLEAR (Clear); Bilirubin,Urine Negative (Negative); Blood, Urine Negative (Negative); Color,Urine YELLOW (Yellow); Glucose,Urine (UA) Negative (Negative); Ketones,Urine Negative (Negative); Leukocyte Esterase,Urine Negative (Negative); Nitrate,Urine Negative (Negative); Protein,Urine Negative (Negative); Specific Gravity, Urine <= 1.005 (1.005-1.030); Urobilinogen,Urine 0.2 EU/dl (0.2)
[2023-11-24] MEDS: METOCLOPRAMIDE 10MG TABLET 10 MG PO (05:02)
[2023-11-24] MEDS: ACETAMINOPHEN 500MG TAB 500 MG PO (05:02)
[2023-11-24] MEDS: 0.9 % SODIUM CHLORIDE 1000ML 1,000 ML 999 ML IV (05:02)
[2023-11-24] MEDS: diphenhydrAMINE 50MG/ML VIAL 25 MG IV (05:02)
[2023-11-24 05:03] LABS: Magnesium 1.8 mg/dl (1.6-2.3)
[2023-11-24 05:04] LABS: Alanine Aminotransferase 25 U/L (12-78); Albumin Level 3.9 g/dl (3.5-5.0); Albumin/Globulin Ratio 1.3 (1.1-1.8); Alkaline Phosphatase 77 U/L (38-126); Anion Gap 3.8 mEq/L (5-15); Aspartate Amino Transferase 26 U/L (14-36); Bilirubin,Total 0.7 mg/dl (0.2-1.3); Blood Urea Nitrogen 9 mg/dl (7-17); Calcium 9.1 mg/dl (8.4-10.2); Carbon Dioxide 25 mmol/L (22.0-30.0); Chloride 111 mmol/L (98-107); Creatinine Clearance Estimated 128 mL/min (50-200); Estimated Glomerular Filt Rate 107 ml/min (>60); GFR (African American) 129 ML/MIN (>60); Globulin 3.1 g/dL (1.3-3.2); Glucose 93 mg/dl (74-100); Lipase 162 U/L (23-300); Potassium 3.8 mmoL/L (3.5-5.1); Sodium 136 mmol/L (136-145)
[2023-11-24 05:06] LABS: HCG Qualitative, Serum Negative (Negative)
[2023-11-24] MEDS: KETOROLAC 30MG/ML VIAL 30 MG IV (05:24)
[2023-11-24 05:26] LABS: Troponin I < 0.01 ng/ml (0.00-0.034)
[2023-11-24 05:31] VITALS: BP 118/68; PULSE 59; O2SAT 100
[2023-11-24 05:36] VITALS: BP 118/68; PULSE 57; RESP 16; TEMP 36.7; O2SAT 97
[2023-11-24 06:09] LABS: HIV (1&2) Antibody Rapid NONREACTIVE (NONREACTIVE)
[2023-11-25 08:19] LABS: HCV Ab Non Reactive (Non Reactive)
== END 2023-11-24 05:47 | disposition home or self-care (01) ==
PROVIDERS: Emergency Provider Emergency Medicine; PCP Student in an Organized Health Care Education/Training Program
DX: R51.9 Headache, unspecified (principal); R11.2 Nausea with vomiting, unspecified; R19.7 Diarrhea, unspecified; R53.1 Weakness
CPT/HCPCS: 80053; 81001; 83690; 83735; 84484; 84703; 85025; 86803; 87389; 87636; 93005; 96361; 96374; 96375; 99283; J1200; J1885; J7030

== ENCOUNTER 2024-02-26 08:19 | Emergency (ER) | payer OTHER, SELFPAY ==
--- NOTE | 2024-02-26 08:37 | EXP.UTC ---
Discharge Plan Disposition Patient Disposition: Home, Self-Care Condition: Good Prescriptions Prescriptions: New azithromycin [Zithromax] 250 mg tablet 250 mg PO UD DOSE PK Qty: 6 0RF Rx Instructions: Take two (2) tablets today, then one (1) tablet days #2 thru #5 benzonatate 100 mg capsule 100 mg PO TIDP PRN (Reason: Cough) Qty: 30 0RF ondansetron 4 mg Tablet,Disintegrating 4 mg PO Q8H PRN (Reason: Nausea) Qty: 12 0RF methylprednisolone 4 mg Tablets,Dose Pack 4 mg PO DIRECTED 6 Days Qty: 21 0RF Rx Instructions: Take 1 pack as directed for 6 days No Action amoxicillin 875 mg tablet 875 mg PO BID Qty: 20 0RF [id number] [Bromfed DM] 2-30-10 mg/5 mL syrup 5 ml PO Q4-6H PRN (Reason: cold symptoms) Qty: 118 0RF Gemtesa 75 mg tablet 75 mg PO DAILY ondansetron 4 mg tablet,disintegrating 4 mg PO Q6H PRN (Reason: nausea and vomiting) Qty: 7 0RF Referrals Follow up/Referrals: Provider,Referral, MD [Primary Care Provider] - See instructions Activity Restrictions/Add. Instructions Additional Instructions/Restrictions: Drink plenty of fluids. Take tylenol or ibuprofen for pain or fever. Take the medications as directed. Follow up with your regular doctor. GO TO THE ER FOR ANY WORSENING SYMPTOMS Clinical Impressions Clinical Impression: Acute viral syndrome, Pharyngitis Stand Alone Forms Stand Alone Forms: Work/School Release Instructions Patient Instructions: Sore Throat, DI for Viral Syndrome, Ondansetron, Azithromycin Print Language Print Language: Botswanan Discharge ED Provider: Enrrique Gerard [facility] HPI General Stated complaint: chills, diarrhea, dizziness Time Seen by Provider: 02/26/24 08:35 History of Present Illness Provider Complaint: She states that for the past 2 days she has had body aches, chilling, low grade fever, malaise and diarrhea. She has some sinus drainage, but she denies significant chest congestion. Related Data Home Medications ?Medication ?Instructions ?Recorded ?Confirmed vibegron 75 mg tablet (Gemtesa) 75 mg PO DAILY 12/29/23 06/25/24 Previous Rx's ?Medication ?Instructions ?Recorded amoxicillin 875 mg tablet 875 mg PO BID #20 tabs 08/01/23 [id number]-gulfhyprjxktdej-CZ 5 ml PO Q4-6H PRN cold symptoms 08/01/23 2 mg-30 mg-10 mg/5 mL oral syrup #118 mL (Bromfed DM) ondansetron 4 mg disintegrating 4 mg PO Q6H PRN nausea and 11/24/23 tablet vomiting #7 tabs azithromycin 250 mg tablet 250 mg PO UD DOSE PK #6 tabs 02/26/24 (Zithromax) benzonatate 100 mg capsule 100 mg PO TIDP PRN Cough #30 caps 02/26/24 methylprednisolone 4 mg tablets in 4 mg PO DIRECTED 6 days #21 tabs 02/26/24 a dose pack ondansetron 4 mg disintegrating 4 mg PO Q8H PRN Nausea #12 tabs 02/26/24 tablet Allergies Allergy/AdvReac Type Severity Reaction Status Date / Time No Known Allergies Allergy Verified 08/05/23 15:44 [facility] Disclaimer: The information contained in this section may have been updated after the patient was seen, as this information can be updated by other users. Medical History Scleral injection left medial Benign paroxysmal positional vertigo UTI (urinary tract infection) Encounter for laboratory testing for COVID-19 virus Surgical History History of hysterectomy History of section Family History Other No significant family history Social History Smoking Status: Never smoker second hand exposure: No alcohol intake: never current occupational status: employed Travel in the last 8 weeks: None current occupational exposures/hazards: No caffeine: Yes Have you lived/traveled outside [place] in past 30 days?: No Contact w/someone who lives/traveled outside [place] past 30 days?: No Exposure to someone with infectious disease in past 14 days?: No Do you have a fever (greater than 100.4 F or 38 C)?: No Have you tested positive for COVID-19: No Exposed to someone with COVID-19 in past 14 days?: No Do you have a sore throat?: No Do you have a cough?: No Do you have any weakness?: No Do you have any diarrhea?: No Are you experiencing any unusual bleeding?: No Do you have any muscle aches/pain?: No Do you have any abdominal pain?: No Are you experiencing loss of taste or smell?: No ROS Obtained: Yes All systems reviewed & no additional complaints except as documented Constitutional Constitutional: Reports chills and Reports fever(s) Eyes Eyes: Denies eye discharge ENT Ears, Nose, Mouth, and Throat: Reports as per HPI Cardiovascular Cardiovascular: Denies chest pain Respiratory Respiratory: Denies chest congestion and Reports cough Gastrointestinal Gastrointestingal: Reports nausea; Denies abdominal pain, constipation, cramping, diarrhea or vomiting Musculoskeletal Musculoskeletal: Denies arthralgias Integumentary/Breasts Skin/Breast: Denies rash Neurologic Neurologic: Denies paresthesias Physical Exam General General appearance: alert and in no apparent distress Head Head exam: atraumatic, normocephalic and normal inspection Eye Eye exam: Present normal appearance, PERRL and EOMI ENT ENT exam: Present mucous membranes moist and normal external ear exam Expanded ENT Exam TM/Canal exam: Bilateral TM: erythema and bulging Nose exam: Absent sinus tenderness Mouth exam: Present normal external inspection; Absent drooling Teeth exam: Present normal inspection Throat exam: Present tonsillar erythema, tonsillomegaly and tonsillar exudate Neck Neck exam: Present normal inspection, full ROM and trachea midline; Absent tenderness, meningismus or lymphadenopathy Chest Chest inspection: Present normal inspection and symmetric chest wall rise; Absent tenderness Respiratory Respiratory exam: Present normal lung sounds bilaterally; Absent respiratory distress, wheezes, stridor or accessory muscle use Cardiovascular Cardiovascular exam: Present regular rate and normal rhythm; Absent systolic murmur or diastolic murmur Abdominal Exam Abdominal exam: Present soft and normal bowel sounds; Absent distention, tenderness, guarding, rebound or rigidity Extremities Exam Extremities exam: Present normal inspection and normal capillary refill; Absent calf tenderness Back Exam Back exam: Present normal inspection and full ROM; Absent tenderness, CVA tenderness (R) or CVA tenderness (L) Neurological Exam Neurological exam: Present alert, oriented X3 and CN II-XII intact Psychiatric Psychiatric exam: Present normal affect and normal mood Skin Skin exam: Present warm, dry, intact and normal color Medical Decision Making Medical Records Medical records reviewed: No I reviewed the patient's medical records. Screening: Per USPSTF and CDC recommendations, given the prevalence of disease in our region, it is our hospital?s policy to screen for HIV and viral Hepatitis for all patients aged 18 and over and those with ongoing risk factors. Link Inquiry Pt receiving controlled substance: No Lab Data Lab results reviewed: Yes I reviewed the patient's lab results.
[2024-02-26 08:38] VITALS: BP 113/63; PULSE 73; RESP 18; TEMP 36.8; O2SAT 97; BMI 28.4
[2024-02-26 08:58] LABS: UTC Influenza A Antigen Negative (Negative); UTC Influenza B Antigen Negative (Negative)
[2024-02-26 09:08] VITALS: BP 113/63; PULSE 73; RESP 18; TEMP 36.8
[2024-02-26 09:17] LABS: Coronavirus 19, PCR Not Detected (NotDetected); Influenza A, PCR Not Detected (NotDetected); Influenza B, PCR Not Detected (NotDetected)
== END 2024-02-26 09:11 | disposition home or self-care (01) ==
PROVIDERS: Emergency Provider Nurse Practitioner Family
DX: J02.9 Acute pharyngitis, unspecified (principal); B34.9 Viral infection, unspecified
CPT/HCPCS: 87636; 87804; 99213; G0381

== ENCOUNTER 2024-03-29 16:39 | Outpatient (CLI) | payer OTHER, SELFPAY | END 2024-03-29 23:59 | disposition home or self-care (01) | LOC: LAB.DROPOF 03-31 10:14 | PROVIDERS: PCP Student in an Organized Health Care Education/Training Program; Visit Provider Student in an Organized Health Care Education/Training Program | DX: N39.0 Urinary tract infection, site not specified (principal) | CPT/HCPCS: 87086; 87088; 87186 ==

== ENCOUNTER 2024-10-13 14:45 | Outpatient (CLI) | payer OTHER, SELFPAY ==
--- NOTE | 2024-10-13 15:00 | US_ITS ---
PROCEDURE: US TRANSVAGINAL CLINICAL INDICATION: left ovary pain COMPARISON: No exams were available for comparison FINDINGS: Transvaginal sonographic images of the pelvis were obtained. UTERUS: The uterus is surgically absent. The vaginal cuff is intact. LEFT OVARY: 1.3cmx0.6 cmx0.8cm with a volume of 0.3ml. RIGHT OVARY: 1.1cmx 0.7 cmx0.6 cm with a volume of 0.2ml. Both ovaries are seen and appear normal. Doppler flow to both ovaries are seen. There is no fluid in the cul-de-sac. IMPRESSION: 1. The uterus is surgically absent. The vaginal cuff is intact. 2. Both ovaries are very difficult to see and appear small and atrophic. 3. No fluid in the cul-de-sac. Dictated by: Alcides Bhatti MD 10/13/2024 19:38 Alcides Bhatti MD in [place] 10/13/2024 19:38
--- OUTSIDE RECORDS SUMMARY | 2024-10-13 15:01 | XMS_ITS | Clinical Summary ---
Author Organization [facility] Address [address] [place] [address] Care Team Providers Care Qualitative Executive Researcher Name Role Phone Pcp, No Primary Care Provider Unavailabl e Social History Tobacco Use Types Packs/Day Years Used Date Smoking Tobacco: Never Comments No Sex and Gender Information Value Date Recorded Sex Assigned at Not on file Legal Sex Female 7:12 PM EDT Gender Identity Not on file Sexual Orientation Not on file Last Filed Vital Signs Vital Sign Reading Time Taken Comments Blood Pressure - - Pulse - - Temperature - - Respiratory Rate - - Oxygen Saturation - - Inhaled Oxygen Concentration - - Weight 71.7 kg (158 lb) 08/09/2021 8:34 AM EDT Height - - Body Mass Index - - Plan of Treatment Health Maintenance Due Date Last Done Comments [facility]-Depression Screening 1975 [facility]-Infant/Child/Adol SDOH Screenings 1975 [facility]- SDOH Screenings 1993 [facility]-Adult SDOH Screenings 1993 [facility]-DTaP,Tdap,and Td Vaccine s (1 - Tdap) 1994 [facility]-Hepatitis B Vaccines (1 of 3 - 19+ 3-dose series) 1994 [facility]-Pap Smear 1996 [facility]-Cervical Cancer Screening 2005 [facility]-HPV/Cotest 2005 CT Colonography 2020 Colonoscopy 2020 FIT-DNA 2020 FIT 2020 FOBT 2020 Sigmoidoscopy 2020 [facility]-Colorectal Cancer Screening 2020 [id number] Vaccine (1 - 20 24-25 season) 2023 [facility]-Influenza Vaccine (#1) 2024 [facility]-Zoster Vaccines (1 of 2) 2025 HPV Vaccines Aged Out No longer eligi ble based on patient's age to complete this topic [facility]-HIB Vaccines Aged Out No longer e ligible based on patient's age to complete this topic [facility]-Hepatitis A Vaccines Aged Out No longer eligible based on patient's age to complete this topic [facility]-IPV Vaccines Aged Out No longer e ligible based on patient's age to complete this topic [facility]-Pneumococcal Vaccine: Pediatrics (0 to 5 Years) and At-Risk Patients (6 to 49 Years) Aged Out No long er eligible based on patient's age to complete this topic [facility]-Rotavirus Vaccines Aged Out No lo nger eligible based on patient's age to complete this topic Care Teams Qualitative Executive Researcher Relationship Specialty Start Date End Date Pcp, No [address] [place] [address] PCP - General Family Medicine 08/09/21
--- OUTSIDE RECORDS SUMMARY | 2024-10-13 15:01 | XMS_ITS | Encounter Summary ---
Author Organization [facility] Address [address] [place] [address] Care Team Providers Care Engineering Designer Name Role Phone Pcp, No Primary Care Provider Unavailabl e Encounter Details Date Type Department Care Team (Late st Contact Info) Description 12/25/2018 Abstract [facility] [address] [place] [address] Dental, Provider, DDS [address] [place] [address] Social History Tobacco Use Types Packs/Day Years Used Date Smoking Tobacco: Never Assessed Comments Unknown Sex and Gender Information Value Date Recorded Sex Assigned at Not on file Legal Sex Female 7:12 PM EDT Gender Identity Not on file Sexual Orientation Not on file documented as of this encounter Plan of Treatment Not on file documented as of this encounter Visit Diagnoses Not on filedocumented in this encounter Care Teams Engineering Designer Relationship Specialty Start Date End Date Pcp, Sienna [address] [place] [address] PCP - General Family Medicine 08/09/21 documented as of this encounter
--- NOTE | 2024-10-13 15:30 | MM_ITS ---
PROCEDURE INFORMATION: Exam: MG Bilateral Screening 3D Mammography Exam date and time: 10/13/2024 3:19 PM Age: 49 years old Clinical indication: Screening mammogram TECHNIQUE: Imaging protocol: Bilateral Screening tomosynthesis and 2D mammography including computer-aided detection (CAD) when performed. COMPARISON: 1. MG MM DIG SCREENING MAMM BI W/CAD 11/19/2022 4:12 PM 2. MG MAMMOGRAPHY BREAST DIAGNOSTIC TOMOSYNTHESIS BILATERAL 08/09/2021 8:39 AM 3. MG RENETTA BILATERAL SCREENING 09/21/2018 3:37 PM 4. US BREAST RT COMPLETE 12/23/2022 3:49 PM FINDINGS: MAMMOGRAPHY: Breast composition: There are scattered areas of fibroglandular density. Mass: None. Architectural distortion: No new or suspicious architectural distortion. Calcifications: No new or suspicious calcifications are present Asymmetric density: No new or suspicious asymmetric density is present Skin thickening: None. Axillary adenopathy: None. IMPRESSION: No mammographic evidence of malignancy. Recommend annual screening mammography unless otherwise clinically indicated. If any focal findings were to be present within either breast then diagnostic mammogram and targeted ultrasound should be performed for further characterization ASSESSMENT: BI-RADS category 1: Negative.
== END 2024-10-13 23:59 | disposition home or self-care (01) ==
LOC: RAD 14:46
PROVIDERS: PCP Family Medicine; Visit Provider Family Medicine
DX: Z12.31 Encounter for screening mammogram for malignant neoplasm of breast (principal); N83.312 Acquired atrophy of left ovary; N83.311 Acquired atrophy of right ovary; N94.89 Other specified conditions associated with female genital organs and menstrual cycle; R92.323 Mammographic fibroglandular density, bilateral breasts; Z90.710 Acquired absence of both cervix and uterus
CPT/HCPCS: 76830; 77063; 77067

== ENCOUNTER 2024-12-14 15:28 | Outpatient (CLI) | payer OTHER, SELFPAY ==
[2024-12-14 20:17] LABS: Alanine Aminotransferase 45 U/L (12-78); Albumin Level 4.2 g/dl (3.5-5.0); Albumin/Globulin Ratio 1.3 (1.1-1.8); Alkaline Phosphatase 129 U/L (38-126); Anion Gap 10.2 mEq/L (5-15); Aspartate Amino Transferase 31 U/L (14-36); Bilirubin,Total 0.7 mg/dl (0.2-1.3); Blood Urea Nitrogen 11 mg/dl (7-17); Calcium 9.3 mg/dl (8.4-10.2); Carbon Dioxide 27 mmol/L (22.0-30.0); Chloride 105 mmol/L (98-107); Creatinine,Serum 0.60 mg/dl (0.52-1.04); Estimated Glomerular Filt Rate 106 ml/min (>60); GFR (African American) 129 ML/MIN (>60); Globulin 3.2 g/dL (1.3-3.2); Glucose 84 mg/dl (74-100); Hematocrit 40.3 % (37.0-47.0); Hemoglobin 13.9 g/dL (12.2-16.2); Immature Granulocytes % 0.1 %; Mean Corpuscular HGB Conc 34.5 g/dL (31.8-35.4); Mean Corpuscular Hemoglobin 30.4 pg (27.0-31.2); Mean Corpuscular Volume 88.2 fl (81-99); Nucleated Red Blood Cells % 0 %; Platelet Count 250 K/mm3 (142-424); Potassium 4.2 mmoL/L (3.5-5.1); Red Blood Count 4.57 M/mm3 (4.20-5.40); Red Cell Distribution Width-SD 41.8 fL; Sodium 138 mmol/L (136-145); Total Protein,Serum 7.4 g/dl (6.3-8.2); White Blood Count 8.7 K/mm3 (4.8-10.8)
[2024-12-14 20:22] LABS: C-Reactive Protein 1.2 mg/L (0-4)
--- OUTSIDE RECORDS SUMMARY | 2024-12-16 15:30 | XMS_ITS | Encounter Summary ---
Author Organization [facility] Address [address] [place] [address] Care Team Providers Care Nut Process Helper Name Role Phone Pcp, No Primary Care Provider Unavailabl e Encounter Details Date Type Department Care Team (Late st Contact Info) Description 12/25/2018 [facility] [address] [place] [address] Dental, Provider, DDS [address] [place] [address] Social History Tobacco Use Types Packs/Day [...] on filedocumented in this encounter Care Teams Nut Process Helper Relationship Specialty Start Date End Date Pcp, Sienna [address] [place] [address] PCP - General Family Medicine 08/09/21 documented as of this encounter
--- OUTSIDE RECORDS SUMMARY | 2024-12-16 15:30 | XMS_ITS | Clinical Summary ---
Author Organization [facility] Address [address] [place] [address] Care Team Providers Care Optical Assistant Name Role Phone Pcp, No Primary Care [...] 2020 Sigmoidoscopy 2020 [facility]-Colorectal Cancer Screening 2020 [id number] Vaccine (1 - 20 24-25 season) 2024 [facility]-Influenza Vaccine (#1) 2024 [facility]-Zoster Vaccines (1 [...] age to complete this topic Care Teams Optical Assistant Relationship Specialty Start Date End Date Pcp, No [address] [place] [address] PCP - General Family Medicine 08/09/21
== END 2024-12-14 23:59 | disposition home or self-care (01) ==
LOC: LAB.DROPOF 12-16 15:28
PROVIDERS: PCP Student in an Organized Health Care Education/Training Program; Visit Provider Family Medicine
DX: M25.50 Pain in unspecified joint (principal)
CPT/HCPCS: 80053; 85025; 85651; 86140

== ENCOUNTER 2025-01-20 14:47 | Outpatient (CLI) | payer OTHER, SELFPAY | END 2025-01-20 23:59 | disposition home or self-care (01) | LOC: LAB.DROPOF 01-21 12:39 | PROVIDERS: PCP Student in an Organized Health Care Education/Training Program; Visit Provider Student in an Organized Health Care Education/Training Program | DX: N39.0 Urinary tract infection, site not specified (principal) | CPT/HCPCS: 87086; 87088; 87186 ==

== ENCOUNTER 2025-02-07 15:06 | Outpatient (CLI) | payer OTHER, SELFPAY ==
--- OUTSIDE RECORDS SUMMARY | 2025-02-08 12:09 | XMS_ITS | Encounter Summary ---
Author Organization Address [address] [place] [address] Care Team Providers Care Goal Umpire Name Role Phone Pcp, No Primary Care Provider Unavailabl e Encounter Details Date Type Department Care Team (Late st Contact Info) Description 12/25/2018 [facility] [address] [place] [address] Dental, Provider, DDS [address] [place] [address] Social History Tobacco Use Types Packs/Day [...] on filedocumented in this encounter Care Teams Goal Umpire Relationship Specialty Start Date End Date Pcp, Sienna [address] [place] [address] PCP - General Family Medicine 08/09/21 documented as of this encounter
--- OUTSIDE RECORDS SUMMARY | 2025-02-08 12:09 | XMS_ITS | Clinical Summary ---
Author Organization [facility] Address [address] [place] [address] Care Team Providers Care Ammunition Assembly Ii Laborer Name Role Phone Pcp, No Primary Care [...] 2020 Sigmoidoscopy 2020 [facility]-Colorectal Cancer Screening 2020 [id number] Vaccine (1 - 20 25-26 season) 2024 [facility]-Influenza Vaccine (#1) 2024 [facility]-Zoster Vaccines (1 of 2) 2025 HPV Vaccines (No Doses Required) Completed [facility]-HIB Vaccines Aged Out No longer e [...] age to complete this topic Care Teams Ammunition Assembly Ii Laborer Relationship Specialty Start Date End Date Pcp, No [address] [place] [address] PCP - General Family Medicine 08/09/21
== END 2025-02-07 23:59 | disposition home or self-care (01) ==
LOC: LAB.DROPOF 02-08 12:08
PROVIDERS: PCP Student in an Organized Health Care Education/Training Program; Visit Provider Nurse Practitioner
DX: N39.0 Urinary tract infection, site not specified (principal)
CPT/HCPCS: 87086